=== PATIENT | female | born 1955 | race Caucasian/White ===

== ENCOUNTER → 2016-09-21 | Outpatient (CLI) | payer MEDICARE, OTHER ==
[~2016-09-21] MED LIST: OXYCONTIN PO; PERCOCET10 PO; ROBAXIN PO; TEMAZEPAM PO; [UNRECOGNIZED DRUG - OTHER]
--- NOTE | ~2016-09-21 | CT2 ---
[facility] A Service of [facility] RADIOLOGY TEXT RESULTS PATIENT: SADE KIM LOCATION: [facility] : 55 UNIT #: [id number] AGE: [address]: Ronnie Villalba MD SEX: F ORDER DR: [id number] [place] [id number] O MR#: [id number] Acc #: [id number] NAME: SADE KIM : 1955 SEX: F STUDY DATE/TIME: 09/21/2016 10:12 UNIT: [facility] ROOM: STUDY DESCRIPTION: CT Abd and Pelv W Cont Attending Physician: Ronnie Villalba M.D. Referring Physician: Ronnie Villalba M.D. Ordering Physician: Ronnie Villalba M.D. Primary Care Physician: Ronnie Villalba M.D. MEDICAL IMAGING REPORT This report is preliminary unless electronic signature is present. EXAM CT abdomen and pelvis with contrast INDICATIONS Unexplained weight loss of 30 pounds over the past 3 months with diarrhea. PROCEDURE Contrast-enhanced CT of the abdomen and pelvis. 100 mL of Isovue-[address] exam was performed with one or more of the following radiation dose reduction techniques: automatic exposure control, adjustment of mA and/or kV according to patient size, and iterative reconstruction. FINDINGS Abdomen with contrast: Included lung bases clear. The liver, spleen kidneys adrenal gland unremarkable. Pancreas atrophic but shows no definite abnormality. Mild to moderate distension of the gallbladder but no wall thickening or pericholecystic fluid. The common duct is within normal limits in diameter for the patient's age. There is mild diffuse colonic wall thickening with moderate amount of scattered stool, gas and some fluid. Small bowel loops are not frankly dilated. There is no abdominal fluid collection. Pelvis with contrast: No pelvic mass. No aggressive appearing bone lesion. IMPRESSION 1. Mild diffuse colonic wall thickening, with a moderate amount of scattered stool, gas and fluid. Findings could represent mild or STS. [facility] A Service of [facility] RADIOLOGY TEXT RESULTS PATIENT: SADE KIM LOCATION: [facility] : 55 UNIT #: [id number] AGE: [address]: Ronnie Villalba MD SEX: F ORDER DR: early colitis. The fluid is in keeping with provided history of diarrhea. 2. No evidence for obstruction or abdominal fluid collection. 3. Other findings detailed above. Dictated by... Juanpablo Rodgers M.D. THIS IS AN ELECTRONICALLY VERIFIED REPORT Juanpablo Rodgers M.D. at 09/22/2016 1:56 PM NEETU/clarissa TD: 09/21/2016 12:10 JOB #: [id number] MEDICAL IMAGING REPORT Page 1 of 1
[2016-09-21 09:00] LABS: POC - GFR >60.0 mL/min (>60)
== END | disposition home or self-care (01) ==
LOC: SCT 08:50
PROVIDERS: Family Medicine
DX: R63.4 Abnormal weight loss (principal); K52.9 Noninfective gastroenteritis and colitis, unspecified
CPT/HCPCS: 74177; 82565; Q9967